=== PATIENT | male | born 1945 | race Caucasian/White ===

== ENCOUNTER 2018-07-13 00:52 | Inpatient (IN) ==
[2018-07-13] MEDS ORDERED: Morphine Inj 4 MG/ML Vial IV.PUSH ONE (01:06)
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
[2018-07-13] MEDS ORDERED: Sod Chloride 0.9% Inj 1,000 ML IV.CONT SCH (01:15)
[2018-07-13 01:20] LABS: Baso # (Auto) 0.1 th/mm3 (0.0-0.2); Baso % (Auto) 0.7 % (0.0-2.0); Eos # (Auto) 0.1 th/mm3 (0.0-0.4); Eos % (Auto) 0.9 % (0.0-4.0); Hematocrit 40.2 % (39.0-51.0); Hemoglobin 13.7 gm/dL (13.0-17.0); Lymph # (Auto) 1.6 th/mm3 (1.0-4.8); Lymph % (Auto) 12.4 % (9.0-44.0); Mean Corpuscular HGB Conc 34.2 % (32.0-36.0); Mean Corpuscular Hemoglobin 33.1 pg (27.0-34.0); Mean Corpuscular Volume 96.8 fL (80.0-100.0); Mean Platelet Volume 8.4 fL (7.0-11.0); Mono # (Auto) 0.9 th/mm3 (0.0-0.9); Mono % (Auto) 7.3 % (0.0-8.0); Neut # (Auto) 10.1 th/mm3 (1.8-7.7); Neut % (Auto) 78.7 % (16.0-70.0); Platelet Count 207 th/mm3 (150-450); Red Blood Count 4.16 mil/mm3 (4.50-5.90); Red Cell Distribution Width 13.1 % (11.6-17.2); White Blood Count 12.8 th/mm3 (4.0-11.0)
[2018-07-13 01:28] LABS: Chloride 97 meq/L (98-107); Potassium 3.7 meq/L (3.5-5.1); Sodium 132 meq/L (136-145)
[2018-07-13 01:32] LABS: Albumin 4.1 g/dL (3.4-5.0); Anion Gap 11 meq/L (5-15); Blood Urea Nitrogen 11 mg/dL (7-18); Carbon Dioxide 24.3 meq/L (21.0-32.0); Glucose,Random 118 mg/dL (74-106); Lipase 123 U/L (73-393); Magnesium 1.9 mg/dL (1.5-2.5)
[2018-07-13 01:35] LABS: Alanine Aminotransferase 33 U/L (12-78); Aspartate Aminotransferase 25 U/L (15-37); Glomerular Filtration Rate 60 mL/min (>89)
[2018-07-13 01:37] LABS: Total Protein 8.1 g/dL (6.4-8.2)
[2018-07-13 01:38] LABS: Alkaline Phosphatase 122 U/L (45-117)
--- NOTE | 2018-07-13 02:19 | CT ---
EXAM DATE: 07/13/2018 2:05 AM EDT AGE/SEX: 73 years / Male INDICATIONS: Right lower quadrant pain. CLINICAL DATA: This is the patient's initial encounter. Patient reports that signs and symptoms have been present for 2 days and indicates a pain score of 6/10. MEDICAL/SURGICAL HISTORY: Hypertension. None. ORAL CONTRAST: No oral contrast ingested. RADIATION DOSE: 15.83 CTDI (mGy) COMPARISON: No prior exams available for comparison. TECHNIQUE: Multiple contiguous axial images were obtained through the abdomen and pelvis following b olus infusion of 100 ml Omnipaque 350 (iohexol) nonionic water-soluble contrast as a single exam do se. No oral contrast ingested. Using automated exposure control and adjustment of the mA and/or kV a ccording to patient size, radiation dose was kept as low as reasonably achievable to obtain optimal d iagnostic quality images. DICOM format image data is available electronically for review and compari son. FINDINGS: Distended appendix with mucosal and wall enhancement and edema in the adjacent fat noted. The appendi x is medial to the base of the cecum. There is a 1 cm appendicolith at the base. No abscess, perforat ion or obstruction. No perceptible mass. No other inflammatory changes are seen. Liver is slightly fatty infiltrated. No focal hepatic lesion. CT appearance of the gallbladder within normal limits. Spleen, pancreas, adrenal glands and kidneys all appear normal. No infiltrate or effusion of the visualized lung bases. Trace atelectasis. No acut e bony abnormalities are demonstrated. Degenerative changes are seen of the spine, bilateral sacroili ac joints and bilateral hips. CONCLUSION: Uncomplicated acute appendicitis. Fecalith at the base of the appendix. Electronically signed by: Shaheen Aj MD 07/13/2018 2:18 AM EDT
[2018-07-13] MEDS ORDERED: Piperacil/Tazo 3.375 GM Premix 50 ML IV.SIG ONE (02:36)
[2018-07-13] MEDS ORDERED: Sod Chloride 0.9% Inj 1,000 ML IV.SIG SCH (02:45)
[2018-07-13 03:06] LABS: Activated Partial Thrombo Time 26.8 sec (24.3-30.1)
[2018-07-13] MEDS: Pantoprazole Inj 40 MG Vial IV.PUSH SCH (03:21)
[2018-07-13] MEDS: Piperacil/Tazo 3.375 GM Premix 50 ML IV.SIG SCH ×3 (08:30→21:40)
[2018-07-13 08:34] LABS: Bilirubin,Urine Negative (Negative); Clarity,Urine Clear (Clear); Color,Urine Yellow (Yellw/Straw); Glucose,Urine (UA) Negative (Negative); Leukocyte Esterase,Urine Negative (Negative); Mucus,Urine Few /lpf (Occasional); Nitrite,Urine Negative (Negative); Specific Gravity,Urine 1.021 (1.002-1.035)
[2018-07-13] MEDS: lamoTRIgine 100 MG Tablet PO SCH ×3 (08:34→22:12)
[2018-07-13] MEDS: Sodium Chloride 0.9% 2 ML Flush BID IV.FLUSH SCH ×2 (08:35→21:45)
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
--- NOTE | 2018-07-13 13:29 | ECG ---
Date Performed: 07/13/2018 Time Performed: 01:19:49 PTAGE: 73 years EKG: Sinus rhythm NORMAL ECG NO PREVIOUS TRACING DOCTOR: Ector Carreno Interpretating Date/Time 07/13/2018 13:27:56
[2018-07-13] MEDS ORDERED: Bupivacaine/Epinephrine PF Inj 0.5% 30 ML Vial ONE (17:48)
[2018-07-13] MEDS ORDERED: Latanoprost 0.005% Opth Drops 2.5 ML Bottle EACH EYE SCH (18:00)
[2018-07-13] MEDS ORDERED: Sugammadex Inj 200 MG/2 ML Vial IV.PUSH ONE (19:27)
[2018-07-13] MEDS ORDERED: Lidocaine PF 1% Inj 5 ML Syringe OTHER ONE (19:37)
[2018-07-13] MEDS ORDERED: Ketorolac Inj 30 MG/ML (IVP) Vial IV.PUSH PRN (20:58)
[2018-07-13] MEDS ORDERED: Post-op Orders (for Pharmacy) OTHER ONE (20:58)
[2018-07-13] MEDS ORDERED: fentaNYL Citrate Inj 100 MCG/2 ML Ampul ONE (21:16)
[2018-07-13] MEDS ORDERED: Morphine Inj 4 MG/ML Vial ONE (21:17)
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
[2018-07-13] MEDS: Sod Chloride 0.9% Inj 1,000 ML IV.CONT SCH (21:45)
[2018-07-14] MEDS: Piperacil/Tazo 3.375 GM Premix 50 ML IV.SIG SCH ×2 (03:10→09:21)
[2018-07-14] MEDS: Pantoprazole Inj 40 MG Vial IV.PUSH SCH (03:10)
[2018-07-14 05:51] LABS: Lymph # (Auto) 0.6 th/mm3 (1.0-4.8); Lymph % (Auto) 5.4 % (9.0-44.0); Mean Corpuscular HGB Conc 34.2 % (32.0-36.0); Mean Corpuscular Hemoglobin 33.6 pg (27.0-34.0); Mean Corpuscular Volume 98.3 fL (80.0-100.0); Mean Platelet Volume 8.2 fL (7.0-11.0); Mono # (Auto) 0.6 th/mm3 (0.0-0.9); Mono % (Auto) 5.7 % (0.0-8.0); Neut # (Auto) 9.4 th/mm3 (1.8-7.7); Neut % (Auto) 88.9 % (16.0-70.0); Platelet Count 158 th/mm3 (150-450); Red Blood Count 3.26 mil/mm3 (4.50-5.90); Red Cell Distribution Width 13.8 % (11.6-17.2); White Blood Count 10.6 th/mm3 (4.0-11.0)
[2018-07-14 06:16] LABS: Anion Gap 8 meq/L (5-15); Aspartate Aminotransferase 10 U/L (15-37); Blood Urea Nitrogen 8 mg/dL (7-18); Calcium 8.2 mg/dL (8.5-10.1); Carbon Dioxide 26.1 meq/L (21.0-32.0); Chloride 108 meq/L (98-107); Glomerular Filtration Rate 73 mL/min (>89); Glucose,Random 118 mg/dL (74-106); Potassium 4.2 meq/L (3.5-5.1); Sodium 142 meq/L (136-145)
[2018-07-14 06:17] LABS: Alanine Aminotransferase 21 U/L (12-78)
[2018-07-14 06:19] LABS: Alkaline Phosphatase 85 U/L (45-117); Total Protein 6.5 g/dL (6.4-8.2)
[2018-07-14] MEDS: lamoTRIgine 100 MG Tablet PO SCH (09:20)
[2018-07-14] MEDS: Sod Chloride 0.9% Inj 1,000 ML IV.CONT SCH (09:40)
[2018-07-14] MEDS: Sodium Chloride 0.9% 2 ML Flush BID IV.FLUSH SCH (09:52)
--- NOTE | 2018-07-14 10:17 | P.PNGS ---
Subjective Interval history: Resting in bed Ate breakfast Pain controlled Ready to go home Physical Exam Vital signs: Vital Signs 07/13/18 12:00 07/13/18 16:00 07/13/18 17:40 Temperature 98.6 F 98.5 F Pulse Rate 79 80 Respiratory Rate 20 20 Blood Pressure 106/70 102/68 140/80 Pulse Oximetry 98 07/13/18 17:43 07/13/18 19:10 07/13/18 21:05 Temperature 99.3 F 99.6 F 98.5 F Pulse Rate 88 84 Respiratory Rate 14 12 Blood Pressure 166/83 H 127/68 Pulse Oximetry 96 100 07/13/18 21:15 07/13/18 21:30 07/13/18 21:45 Temperature Pulse Rate 78 72 73 Respiratory Rate 13 13 14 Blood Pressure 118/58 L 121/66 130/70 Pulse Oximetry 100 100 100 07/13/18 23:00 07/14/18 03:00 Temperature 99.0 F 98.9 F Pulse Rate 81 85 Respiratory Rate 16 14 Blood Pressure 125/80 128/76 Pulse Oximetry 97 94 L Intake & Output 07/13/18 07/14/18 07/14/18 18:59 06:59 18:59 Intake Total 700 / 700 1490 / 1490 Output Total 400 / 400 650 / 650 Balance 300 / 300 840 / 840 Weight 87 kg 89 kg Intake: IV 600 / 600 250 / 250 NS Inj 1,000 ML @ 125 mls/hr IV 500 / 500 .CONT .Q8H ENEDELIA Rx#:[id number] Ofirmev Inj 1,000 mg In 100 ml 200 / 200 @ 400 mls/hr IV.SIG Q6H ENEDELIA Rx# :[id number] Zosyn 3.375 GM Premix 50 ML @ 100 / 100 50 / 50 100 mls/hr IV.SIG Q6H ENEDELIA Rx#: [id number] Oral 100 / 100 240 / 240 Anesthesia Amount 1000 / 1000 Output: Urine 400 / 400 600 / 600 Estimated Blood Loss 50 / 50 Other: # Voids 3 Weight On Admission 87 kg Narrative: Alert and awake Abd: soft; minimally tender in RLQ; umbilical incision with minimally bloody drainage Results - Labs 07/14/18 05:07 07/14/18 05:07 Laboratory Results - last 24 hr 07/14/18 07/14/18 05:07 05:07 WBC 10.6 RBC 3.26 L Hgb 11.0 L D Hct 32.0 L MCV 98.3 MCH 33.6 MCHC 34.2 RDW 13.8 Plt Count 158 MPV 8.2 Neut % (Auto) 88.9 H Lymph % (Auto) 5.4 L [place] % (Auto) 5.7 Eos % (Auto) 0.0 Baso % (Auto) 0.0 Neut # (Auto) 9.4 H Lymph # (Auto) 0.6 L [place] # (Auto) 0.6 Eos # (Auto) 0.0 Baso # (Auto) 0.0 WBC Differential . Differential Comment Auto diff final Sodium 142 D Potassium 4.2 Chloride 108 H D Carbon Dioxide 26.1 Anion Gap 8 BUN 8 Creatinine 1.00 Estimated GFR 73 L Random Glucose 118 H Calcium 8.2 L D Total Bilirubin 0.6 AST 10 L ALT 21 Alkaline Phosphatase 85 Total Protein 6.5 D Albumin 3.0 L D - Imaging Imaging: ITS Impressions Abdomen/Pelvis CT 07/13/18 01:06 CONCLUSION: Uncomplicated acute appendicitis. Fecalith at the base of the appendix. Assessment and Plan - Assessment (1) Acute appendicitis Code(s): K35.80 - Unspecified acute appendicitis Status: Acute Plan: 73 year old male POD1 lap appy -Regular diet -Pain controlled -GS clear for DC -Okay to shower tomorrow; pat incisions dry -Avoid any heavy pushing/pulling/lifting -Follow up with Dr. Eddy Jul 21 at 10:50 AM -Rx for Romance on chart (2) Abnormal CT of the abdomen Code(s): R93.5 - Abnormal findings on diagnostic imaging of other abdominal regions, including retroperitoneum Status: Acute (3) Elevated white blood cell count Code(s): D72.829 - Elevated white blood cell count, unspecified Status: Acute (4) History of Reece's esophagus Code(s): Z87.19 - Personal history of other diseases of the digestive system Status: Chronic (5) GERD (gastroesophageal reflux disease) Code(s): K21.9 - Gastro-esophageal reflux disease without esophagitis Status: Chronic (6) History of exploratory laparotomy Code(s): Z98.890 - Other specified postprocedural states Status: Chronic - Attending Attestation NOTE FOR SURGICAL ATTENDING, DR. SUSAN EDDY I agree with above assessment and plan. The exam, history, and the medical decision-making described in the above note were completed with the assistance of the mid-level provider. I reviewed and agree with the findings presented. The following services were provided during this hospital visit: Chart data review, vital sign assessments/reviewing monitor data Review of consultations notes if present. Medication orders/review and/or management Ordering and/or reviewing lab tests Ordering and/or interpreting/reviewing x-rays and/or diagnostic studies Care of the patient and discussion of the patient with the care team Documentation time To help prompt me to consider important information that might be impacting today's encounter and assessment, Information from prior notes written by myself or my colleagues may have been "brought forward/copy and pasted" into today's note. (1) Acute appendicitis Qualifiers: Acute appendicitis type: with localized peritonitis Appendicitis perforation presence: without perforation
--- NOTE | 2018-07-14 10:20 | P.PN ---
Subjective Interval history: Follow up Acute appendicitis 07/14/18-patient seen and examined, s/p Lap appy; complains of mild abdominal pain. Tolerating PO without any nausea or emesis Physical Exam Vital signs: Vital Signs 07/13/18 12:00 07/13/18 16:00 07/13/18 17:40 Temperature 98.6 F 98.5 F Pulse Rate 79 80 Respiratory Rate 20 20 Blood Pressure 106/70 102/68 140/80 Pulse Oximetry 98 07/13/18 17:43 07/13/18 19:10 07/13/18 21:05 Temperature 99.3 F 99.6 F 98.5 F Pulse Rate 88 84 Respiratory Rate 14 12 Blood Pressure 166/83 H 127/68 Pulse Oximetry 96 100 07/13/18 21:15 07/13/18 21:30 07/13/18 21:45 Temperature Pulse Rate 78 72 73 Respiratory Rate 13 13 14 Blood Pressure 118/58 L 121/66 130/70 Pulse Oximetry 100 100 100 07/13/18 23:00 07/14/18 03:00 Temperature 99.0 F 98.9 F Pulse Rate 81 85 Respiratory Rate 16 14 Blood Pressure 125/80 128/76 Pulse Oximetry 97 94 L Intake & Output 07/13/18 07/14/18 07/14/18 18:59 06:59 18:59 Intake Total 700 / 700 1490 / 1490 Output Total 400 / 400 650 / 650 Balance 300 / 300 840 / 840 Weight 87 kg 89 kg Intake: IV 600 / 600 250 / 250 NS Inj 1,000 ML @ 125 mls/hr IV 500 / 500 .CONT .Q8H ENEDELIA Rx#:[id number] Ofirmev Inj 1,000 mg In 100 ml 200 / 200 @ 400 mls/hr IV.SIG Q6H ENEDELIA Rx# :[id number] Zosyn 3.375 GM Premix 50 ML @ 100 / 100 50 / 50 100 mls/hr IV.SIG Q6H ENEDELIA Rx#: [id number] Oral 100 / 100 240 / 240 Anesthesia Amount 1000 / 1000 Output: Urine 400 / 400 600 / 600 Estimated Blood Loss 50 / 50 Other: # Voids 3 Weight On Admission 87 kg Narrative: GENERAL: NAD SKIN: Warm and dry. HEAD: Normocephalic. EYES: No scleral icterus. No injection or drainage. NECK: Supple, trachea midline. No JVD or lymphadenopathy. CARDIOVASCULAR: Regular rate and rhythm without murmurs, gallops, or rubs. RESPIRATORY: Breath sounds equal bilaterally. No accessory muscle use. GASTROINTESTINAL: Abdomen soft, mildly tender, nondistended. inc c/d/i MUSCULOSKELETAL: No cyanosis, or edema. BACK: Nontender without obvious deformity. No CVA tenderness. Results - Labs CBC & Chem 7: 07/14/18 05:07 07/14/18 05:07 Laboratory Results - last 24 hr 07/14/18 07/14/18 05:07 05:07 WBC 10.6 RBC 3.26 L Hgb 11.0 L D Hct 32.0 L MCV 98.3 MCH 33.6 MCHC 34.2 RDW 13.8 Plt Count 158 MPV 8.2 Neut % (Auto) 88.9 H Lymph % (Auto) 5.4 L [place] % (Auto) 5.7 Eos % (Auto) 0.0 Baso % (Auto) 0.0 Neut # (Auto) 9.4 H Lymph # (Auto) 0.6 L [place] # (Auto) 0.6 Eos # (Auto) 0.0 Baso # (Auto) 0.0 WBC Differential . Differential Comment Auto diff final Sodium 142 D Potassium 4.2 Chloride 108 H D Carbon Dioxide 26.1 Anion Gap 8 BUN 8 Creatinine 1.00 Estimated GFR 73 L Random Glucose 118 H Calcium 8.2 L D Total Bilirubin 0.6 AST 10 L ALT 21 Alkaline Phosphatase 85 Total Protein 6.5 D Albumin 3.0 L D - Procedures Laparoscopy appendectomy 07/14/18 Assessment and Plan - Plan 73-year-old man with Uncomplicated acute appendicitis CT abdomen/pelvis with finding of Uncomplicated acute appendicitis Appreciate General Surgery input appreciated s/p Laparoscopy appendectomy 07/14/18 Currently on Zosyn, n.p.o. and IV fluid hydration Pain management accordingly Leukocytosis Secondary to above History of hypertension, hyperlipidemia, bipolar disorder, Reece's esophagus Continue medications after procedure DVT prophylaxis: Bilateral SCDs
--- NOTE | 2018-07-14 10:26 | P.DS ---
Date of admission: 07/13/18 02:59 Primary care physician: Payal Hendrickson Brief History from admission: 73-year-old male for past medical history of hypertension, Reece's esophagus and prior history of expiratory laparotomy for liver laceration 20 years ago presented to the ED for evaluation of an acute onset of right lower quadrant abdominal pain described as aching pain associated with nausea without any emesis rated over [address] abdomen in the ED reveals uncomplicated appendicitis for which general surgery was consulted. He had couple bowel movement without any presence of gross blood yesterday. Currently, denies any chest pain or shortness of breath. DS: Medications - Discharge Medications Prescriptions: hydrocodone-acetaminophen 1 tab PO Q4H PRN #15 tab PRN Reason: acute post op pain exception DS: Summary Hospital Course: Patient admitted secondary to acute appendicitis for which General surgery was consulted. Patient underwent lap appendectomy. He was continued on his treatment for other chronic medical conditions. Prior to discharge, patient's condition improved and vitals remained stable. - Time Spent with Patient Total time spent providing and/or coordinating discharge services: Less than 30 minutes - Quality: VTE Deep Vein Thrombosis/Pulmonary Embolism Present on Admission: No Exam Vital signs: Vital Signs 07/13/18 12:00 07/13/18 16:00 07/13/18 17:40 Temperature 98.6 F 98.5 F Pulse Rate 79 80 Respiratory Rate 20 20 Blood Pressure 106/70 102/68 140/80 Pulse Oximetry 98 07/13/18 17:43 07/13/18 19:10 07/13/18 21:05 Temperature 99.3 F 99.6 F 98.5 F Pulse Rate 88 84 Respiratory Rate 14 12 Blood Pressure 166/83 H 127/68 Pulse Oximetry 96 100 07/13/18 21:15 07/13/18 21:30 07/13/18 21:45 Temperature Pulse Rate 78 72 73 Respiratory Rate 13 13 14 Blood Pressure 118/58 L 121/66 130/70 Pulse Oximetry 100 100 100 07/13/18 23:00 07/14/18 03:00 Temperature 99.0 F 98.9 F Pulse Rate 81 85 Respiratory Rate 16 14 Blood Pressure 125/80 128/76 Pulse Oximetry 97 94 L Intake & Output 07/13/18 07/14/18 07/14/18 18:59 06:59 18:59 Intake Total 700 / 700 1490 / 1490 Output Total 400 / 400 650 / 650 Balance 300 / 300 840 / 840 Weight 87 kg 89 kg Intake: IV 600 / 600 250 / 250 NS Inj 1,000 ML @ 125 mls/hr IV 500 / 500 .CONT .Q8H ENEDELIA Rx#:[id number] Ofirmev Inj 1,000 mg In 100 ml 200 / 200 @ 400 mls/hr IV.SIG Q6H ENEDELIA Rx# :[id number] Zosyn 3.375 GM Premix 50 ML @ 100 / 100 50 / 50 100 mls/hr IV.SIG Q6H ENEDELIA Rx#: [id number] Oral 100 / 100 240 / 240 Anesthesia Amount 1000 / 1000 Output: Urine 400 / 400 600 / 600 Estimated Blood Loss 50 / 50 Other: # Voids 3 Weight On Admission 87 kg Narrative: GENERAL: NAD SKIN: Warm and dry. HEAD: Normocephalic. EYES: No scleral icterus. No injection or drainage. NECK: Supple, trachea midline. No JVD or lymphadenopathy. CARDIOVASCULAR: Regular rate and rhythm without murmurs, gallops, or rubs. RESPIRATORY: Breath sounds equal bilaterally. No accessory muscle use. GASTROINTESTINAL: Abdomen soft, mildly tender, nondistended. inc c/d/i MUSCULOSKELETAL: No cyanosis, or edema. BACK: Nontender without obvious deformity. No CVA tenderness. Results Procedures completed during hospitalization: Laparoscopy appendectomy 07/14/18 Pending studies at discharge: Pending at discharge 07/13/18 09:02 Surgical [PTH] Routine Labs on day of discharge: Labs from last 24 hours 07/14/18 07/14/18 05:07 05:07 WBC 10.6 RBC 3.26 L Hgb 11.0 L D Hct 32.0 L MCV 98.3 MCH 33.6 MCHC 34.2 RDW 13.8 Plt Count 158 MPV 8.2 Neut % (Auto) 88.9 H Lymph % (Auto) 5.4 L [place] % (Auto) 5.7 Eos % (Auto) 0.0 Baso % (Auto) 0.0 Neut # (Auto) 9.4 H Lymph # (Auto) 0.6 L [place] # (Auto) 0.6 Eos # (Auto) 0.0 Baso # (Auto) 0.0 WBC Differential . Differential Comment Auto diff final Sodium 142 D Potassium 4.2 Chloride 108 H D Carbon Dioxide 26.1 Anion Gap 8 BUN 8 Creatinine 1.00 Estimated GFR 73 L Random Glucose 118 H Calcium 8.2 L D Total Bilirubin 0.6 AST 10 L ALT 21 Alkaline Phosphatase 85 Total Protein 6.5 D Albumin 3.0 L D - Impressions ITS Impressions Abdomen/Pelvis CT 07/13/18 01:06 CONCLUSION: Uncomplicated acute appendicitis. Fecalith at the base of the appendix. Discharge Plan - Discharge Disposition Patient Disposition: Discharge Home - Discharge Condition Condition: Fair - Discharge Order Discharge Orders: Discharge Order (Routine); Ordered 07/14/18 Ordered By: Raul Quiroz - Discharge Details Discharge Comment: Case has been discussed with Dr. Fermin from general surgery and the patient has been admitted to the medical service - Physicians Team Attending Provider: Raul Quiroz Other Providers: Reji Fermin MD ; Deon Chavarria
[2018-07-14 11:18] VITALS: BP 122/75; PULSE 79; RESP 18; TEMP 97.6; O2SAT 95
== END 2018-07-14 12:13 | disposition home or self-care (01) ==
LOC: PHED 00:52 → PHEDA 02:59 → NEDA 05:37 → PHEDA 05:37 → NEDA 06:00 → HCIS 06:37
PROVIDERS: ADMIT Hospitalist; ATTEND Hospitalist
PROC: LAPAPPY (ICD-10-PCS; 2018-07-13 19:37)